=== PATIENT | female | born 1980 | race Caucasian/White ===

== ENCOUNTER 2023-11-30 19:06 | Emergency (ER) | payer BC ==
[~2023-11-30] VITALS: Ht 162.6 cm; Wt 61.2 kg
[2023-11-30 21:57] VITALS: BP 132/76; TEMP 98.3; O2SAT 99
[2023-11-30] MEDS: LORAZEPAM 1 MG TABLET PO ONE (22:00)
[2023-11-30] MEDS ORDERED: LORAZEPAM 1 MG TABLET PO ONE (22:00)
== END 2023-11-30 22:05 | disposition home or self-care (01) ==
LOC: ER 19:15
DX: F41.0 Panic disorder [episodic paroxysmal anxiety] (principal); F41.9 Anxiety disorder, unspecified